=== PATIENT | female | born 1975 | race Two or more races ===

== ENCOUNTER 2023-11-02 00:27 | Emergency (ER) | payer MEDICAID, OTHER ==
[~2023-11-02] VITALS: Ht 147.3 cm; Wt 51.7 kg
[2023-11-02 00:48] VITALS: BP 102/67; PULSE 101; RESP 20; O2SAT 99
== END 2023-11-02 03:34 | disposition left against medical advice (07) ==
LOC: ER 00:27
DX: R51.9 Headache, unspecified (principal); Z53.21 Procedure and treatment not carried out due to patient leaving prior to being seen by health care provider